=== PATIENT | male | born 1950 | race Caucasian/White ===

== ENCOUNTER 2019-04-05 08:05 | Outpatient (CLI) | payer MEDICARE, OTHER ==
[~2019-04-05 08:05] MED LIST: ASPI-496 PO; CARV-39 PO; HYDR-3237 PO; HYDR25TA6 PO; LISI5TAB7 PO; REGADENOSON 0.4 MG/5 ML SYRINGE ONE
== END 2019-04-05 23:59 | disposition home or self-care (01) ==
LOC: CFH 08:05
PROVIDERS: ATTEND Internal Medicine Cardiovascular Disease
DX: I25.5 Ischemic cardiomyopathy (principal); R29.898 Other symptoms and signs involving the musculoskeletal system
CPT/HCPCS: 78452; 93017; A9502; J2785

== ENCOUNTER → 2019-11-03 | Outpatient (CLI) | payer MEDICARE, OTHER ==
[~2019-11-03] MED LIST changes: -REGADENOSON 0.4 MG/5 ML SYRINGE ONE
== END | disposition home or self-care (01) ==
LOC: CVU 06:27
PROVIDERS: ATTEND Internal Medicine Cardiovascular Disease
DX: I11.0 Hypertensive heart disease with heart failure (principal); I50.9 Heart failure, unspecified; I42.9 Cardiomyopathy, unspecified
CPT/HCPCS: 93306